=== PATIENT | female | born 1965 | race Two or more races ===

== ENCOUNTER 2024-05-04 05:50 | Emergency (ER) | payer MEDICAID ==
[~2024-05-04] VITALS: Ht 165.1 cm; Wt 103.4 kg
[2024-05-04 06:05] VITALS: BP 169/96; PULSE 73; RESP 18; TEMP 98.4; O2SAT 95
--- NOTE | 2024-05-04 06:54 | ED.PDOC ---
GI ASSESSMENT HPI Comments A 59 YEAR OLD FEMALE PRESENTS TO THE ED WITH COMPLAINT OF RIGHT UPPER QUADRANT ABDOMINAL PAIN THAT RADIATES TO MIDDLE BACK. PATIENT STATES SHE HAS BEEN EXPERIENCING RIGHT UPPER QUADRANT ABDOMINAL PAIN THAT RADIATES TO HER MIDDLE BACK OFF AND ON FOR THE PAST 1 WEEK. PATIENT NOTES EATING INCREASES HER PAIN. PATIENT DENIES DYSURIA, HEMATURIA, FLANK PAIN, FEVER, CHILLS, SHORTNESS OF BREATH, CHEST PAIN, NAUSEA, VOMITING, HEADACHE, OR OTHER COMPLAINTS. NO OTHER SYMPTOMS OR MODIFYING FACTORS AT THIS TIME. PATIENT IS ALERT, ORIENTED X 4, AND HAS STEADY GAIT. Chief Complaint: Abdominal Pain Time Seen by MD: 06:20 Reviewed Notes: Nurses Notes, Medications, Allergies Allergies: Coded Allergies: Penicillins (Verified Allergy, Unknown, 05/04/24) Home Meds Active Scripts Dicyclomine Hcl (BENTYL CAPSULE) 10 Mg Cp, 20 MG PO TID, #30 CAP Prov:KAREN AGUIRRE 05/04/24 Docusate Sodium (Colace) 100 Mg Cap, 1 CAP PO BID, #30 CAP Prov:KAREN AGUIRRE 05/04/24 Information Source: Patient Mode of Arrival: Ambulatory Timing: Days Duration: Since onset, Days Prehospital treatment: None Quality: Aching, Cramping Vomitus: None Stool: Normal Severity: Moderate Recent: None Recent Hx of: None Pain Location: Epigastric, RUQ Modifying Factors: Nothing Associated sign and symptoms: Abdominal Pain Past Medical History PAST MEDICAL HISTORY: DM, HTN Surgical History: Denies all surgeries SOLDERER ASSEMBLER 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 History Family History Family History: Reviewed,noncontributory to illness Social History Smoker: Non-Smoker Alcohol: Denies ETOH Use Drugs: Denies Drug Use Lives In: Home Constitutional: denies: chills, diaphoresis, fatigue, fever, malaise, sweats, weakness, others EENTM: denies: blurred vision, double vision, ear bleeding, ear discharge, ear drainage, ear pain, ear ringing, eye pain, eye redness, hearing loss, mouth pain, mouth swelling, nasal discharge, nose bleeding, nose congestion, nose pain, photophobia, tearing, throat pain, throat swelling, voice changes, others Respiratory: denies: cough, hemoptysis, orthopnea, SOB at rest, shortness of breath, SOB with excertion, stridor, wheezing, others Cardiovascular: denies: chest pain, dizzy spells, diaphoresis, Dyspnea on exertion, edema, irregular heart beat, left arm pain, lightheadedness, palpitations, PND, syncope, others Gastrointestinal: reports: abdominal pain (RUQ ABDOMINAL PAIN); denies: abdomen distended, blood streaked bowels, constipated, diarrhea, dysphagia, difficulty swallowing, hematemesis, melena, nausea, poor appetite, poor fluid intake, rectal bleeding, rectal pain, vomiting, others Genitourinary: denies: abnormal vagina bleeding, burning, dyspareunia, dysuria, flank pain, frequency, hematuria, incontinence, pain, , vagina disc harge, urgency, others Neurological: denies: dizziness, fainting, headache, left sided numbness, left sided weakness, numbness, paresthesia, pre-existing deficit, right sided numbness, right sided weakness, seizure, speech problems, tingling, tremors, weakness, others Musculoskeletal: reports: back pain (MIDDLE BACK PAIN); denies: gout, joint pain, joint swelling, muscle pain, muscle stiffness, neck pain, others Integumetry: denies: bruises, change in color, change in hair/nails, dryness, laceration, lesions, lumps, rash, wounds, others Allergic/Immunocompromised: denies: Difficulty Healing, Frequent Infections, Hives, Itching, others Hematologic/Lymphatic: denies: anemia, blood clots, easy bleeding, easy bruising, swollen glands, others Endocrine: denies: excessive hunger, excessive sweating, excessive thirst, excessive urination, flushing, intolerance to cold, intolerance to heat, unexplained weight gain, unexplained weight loss, others Psychiatric: denies: anxiety, bipolar disorder, depression, hopeless, panic disorder, schizophrenia, sleepless, suicidal, others All Other Systems: Reviewed and Negative Physical Exam General Appearance: No Apparent Distress, Obese HEENT: Normal ENT Inspection, PERRL/EOMI, Pharynx Normal, TMs Normal Neck: Full Range of Motion, Non-Tender, Normal, Normal Inspection Respiratory: Chest Non-Tender, Lungs Clear, No Accessory Muscle Use, No Respiratory Distress, Normal Breath Sounds Cardiovascular: No Edema, No JVD, No Murmur, No Gallop, Normal Peripheral Pulses, Regular Rate/Rhythm Breast Exam: Deferred Gastrointestinal: No Organomegaly, No Pulsatile Mass, Normal Bowel Sounds, RUQ, Soft, Tenderness (RIGHT UPPER ABD, NO GUARDING AND REBOUND TENDERNESS. ) Genitalia: Deferred Pelvic: Deferred Rectal: Deferred Extremities: No calf tenderness, Normal capillary refill, Normal inspection, Normal range of motion, Non-tender, No pedal edema Musculoskeletal : Apperance: Normal Neurologic: Alert, general machine operator II-XII nml as Tested, No Motor Deficits, Normal Affect, Normal Mood, No Sensory Deficits Cerebellar Function: Normal Reflexes: Normal Skin: Dry, Normal Color, Warm Peripheral Pulses: 2+ carotid (R), 2+ carotid (L) Lymphatic: No Adenopathy Was a procedure done? Was a procedure done?: No GI differential Dx Differential Diagnosis: Cholecystitis, Constipation, Gastritis/PUD, Gastroenteritis, Inflammatory BD, Pancreatitis, UTI, Kidney Stone X-Ray, Labs, Meds, VS Vital Signs Date Time Temp Pulse Resp B/P (MAP) Pulse Ox O2 Delivery O2 Flow Rate FiO2 05/04/24 07:04 Room Air 05/04/24 06:05 98.4 73 18 169/96 (120) 95 05/04/24 06:05 98.4 73 18 169/96 (120) 95 98.4 Lab Test 05/04/24 07:03 05/04/24 06:34 Range/Units Urine Color Colorless Yellow Urine Clarity Clear Clear Urine pH 6.0 5.0-9.0 Urine Specific [place] 1.013 1.001-1.035 Urine Protein 1+ H Negative Urine Ketones Negative Negative Urine Blood Negative Negative /uL Urine Nitrite Negative Negative Urine Bilirubin Negative Negative Urine Urobilinogen Normal Negative mg/dL Urine Leukocyte Esterase 1+ Negative /uL Urine RBC 1 0 - 4 /hpf Urine Microscopic WBC 5 0-5 /HPF Urine Squamous Epithelial Cells Few <5 /hpf Urine Bacteria None seen None Seen /hpf Urine Glucose Trace Normal mg/dL White Blood Count 8.9 4.4-10.8 10^3/uL Red Blood Count 4.57 4.0-5.20 10^6/uL Hemoglobin 13.9 12.2-16.2 g/dL Hematocrit 41.7 36.0-46.0 % Mean Corpuscular Volume 91.4 80.0-100.0 fL Mean Corpuscular Hemoglobin 30.4 28.0-32.0 pg Mean Corpuscular Hemoglobin Concent 33.3 32.0-36.0 g/dL Red Cell Distribution Width 13.5 11.8-14.3 % Platelet Count 417 140-450 10^3/uL Mean Platelet Volume 8.5 6.9-10.8 fL Neutrophils (%) (Auto) 61.6 37.0-80.0 % Lymphocytes (%) (Auto) 23.9 10.0-50.0 % Monocytes (%) (Auto) 11.0 0.0-12.0 % Eosinophils (%) (Auto) 2.8 0.0-7.0 % Basophils (%) (Auto) 0.7 0.0-2.0 % Neutrophils # (Auto) 5.5 1.6-8.6 10 ^3/uL Lymphocytes # (Auto) 2.1 0.4-5.4 10 ^3/uL Monocytes # (Auto) 1.0 0-1.3 10 ^3/uL Eosinophils # (Auto) 0.3 0-0.8 10 ^3/uL Basophils # (Auto) 0.1 0-0.2 10 ^3/uL Nucleated Red Blood Cells 0.0 % Sodium Level 142 136-145 mmol/L Potassium Level 4.5 3.5-5.1 mmol/L Chloride Level 107 98-107 mmol/L Carbon Dioxide Level 26 20-31 mmol/L Anion Gap 9 5-15 Blood Urea Nitrogen 26 H 9-23 mg/dL Creatinine 1.47 H 0.550-1.02 mg/dL Glomerular Filtration Rate Calc 41 >90 mL/min BUN/Creatinine Ratio 17.7 10.0-20.0 Serum Glucose 191 H 74-106 mg/dL Calcium Level 10.4 8.7-10.4 mg/dL Total Bilirubin 0.3 0.2-1.0 mg/dL Aspartate Amino Transferase (AST) 12 L 13-40 U/L Alanine Aminotransferase (ALT) 15 7-40 U/L Alkaline Phosphatase 106 46-116 U/L Total Protein 7.8 5.7-8.2 g/dL Albumin 4.7 3.2-4.8 g/dL Lipase 50 12-53 U/L Current Medications Medications (Trade) Dose Ordered Sig/Mark Route Start Time Stop Time Status Last Admin Acetaminophen/ Hydrocodone Bitart ([place] 10/325MG Tab) 1 tab ONCE ONCE PO 05/04/24 08:15 2/15/25 08:16 DC 05/04/24 08:11 CLINICAL INFORMATION: 59 years old, Female; right upper quadrant pain. TECHNIQUE: Grayscale sonographic imaging of the right upper quadrant of the abdomen was performed, assisted by color Doppler techniques. COMPARISON: None FINDINGS: Limited examination due to the patient's clinical condition. Patient is in pain and unable to hold still during the examination. The gallbladder wall measures 2.9 mm in thickness, within normal limits. No stones are seen. Negative reported sonographic singh's sign. The common bile duct is not visualized. Increased echogenicity of the liver suggesting fatty infiltration. Liver is within normal limits in size, measuring up to 15.3 cm in craniocaudal dimension. Pancreas is obscured by bowel gas. The right kidney measures 9.9 cm. There is no hydronephrosis. Right renal cortical echogenicity and cortical thickness are within normal limits. IMPRESSION: 1. Limited examination. No sonographic evidence of acute cholecystitis. Common bile duct is not visualized. 2. Hepatic steatosis. ATED BY: BASILIO MORALES DO DICTATED DATE/TIME: 05/04/24738 SIGNED BY: BASILIO MORALES DO SIGNED DATE/TIME: 05/04/24738 CC: CLINICAL INFORMATION: 59 years old, Female; right upper abdominal pain radiating to the back. TECHNIQUE: Axial CT images of the abdomen and pelvis were obtained without IV contrast. Coronal and sagittal reformatted images were obtained, reviewed, and stored. Evaluation of the parenchymal organs is limited without IV contrast. Evaluation of the bowel and mesentery is limited without oral contrast. All CT scans at this medical facility are performed using dose modulation techniques as appropriate to a performed exam including the following: Automated exposure control was utilized; adjustment of the MA and/or KV according to patient size; and use of iterative reconstruction technique. CTDIvol = 26.35 mGy DLP = 1290.55 mGy-cm COMPARISON: Correlation made to same day ultrasound. FINDINGS: Lung bases: Lung bases are clear. Liver: Grossly unremarkable in its noncontrast enhanced appearance. No abnormal density or focal lesion identified. Biliary: No calcified gallstones or biliary ductal dilatation. Spleen: Unremarkable. Pancreas: Grossly unremarkable in its noncontrast enhanced appearance. Adrenal glands: Unremarkable. No mass. Kidneys: No hydronephrosis. No renal or ureteral calculi. Aorta/Vascular: Scattered atherosclerotic calcification. No abdominal aortic aneurysm. Retroperitoneum: No mass or lymphadenopathy. Bowel/mesentery: No small bowel obstruction. No free air or free fluid. Appendix is visualized and appears unremarkable. Scattered colonic diverticula without adjacent inflammatory changes to suggest diverticulitis. Moderate stool in the colon. Pelvic organs: Uterus is anteverted. Cystic appearing structure in the right adnexa measuring up to 4 cm in greatest dimension, likely ovarian cyst. Bladder: Unremarkable. No mass. Abdominal wall: No mass or hernia. Bones: No acute fracture or suspicious intraosseous lesion. Severe disc space narrowing at L4-L5 with associated sclerosis near the vertebral endplates. IMPRESSION: 1. Scattered small colonic diverticula without adjacent inflammatory changes to suggest diverticulitis. 2. Moderate stool in the colon. 3. 4 cm cystic structure in the right adnexa, likely ovarian cyst. Correlate with clinical findings. If clinically indicated, pelvic ultrasound could be obtained. 4. Additional nonacute findings as detailed above. ATED BY: BASILIO MORALES DO DICTATED DATE/TIME: 05/04/24829 SIGNED BY: BASILIO MORALES DO SIGNED DATE/TIME: 05/04/24829 CC: X-Ray, Labs, Meds, VS Comment EXTERNAL MEDICAL RECORDS REVIEWED: [NONE] INDEPENDENT HISTORIANS: [NONE] SOCIAL DETERMINANTS OF HEALTH: [NONE] LABS ORDERED: CBC, CMP, UA, LIPASE REVIEWED AND INTERPRETED RESULTS: IMAGING ORDERED: U.S. ABDOMEN TREATMENTS ORDERED: [place] 10/325 PO PROCEDURES PERFORMED: NONE CRITICAL CARE TIME: NONE I HAVE DISCUSSED THE PATIENT WITH THE ATTENDING PHYSICIAN DR. ELIAS AND HE AGREES WITH THE PATIENT'S PLAN OF CARE AND DISPOSITION. BASED ON HISTORY OF PRESENT ILLNESS, AND PHYSICAL EXAM, PATIENT WILL BE DISCHARGED HOME. SHARED DECISION MAKING: PATIENT INSTRUCTED TO FOLLOW UP WITH PRIMARY CARE PROVIDER IN 1-2 DAYS FOR RE-EVALUATION OF SYMPTOMS. PATIENT VERBALIZES UNDERSTANDING TO RETURN TO ED FOR NEW OR WORSENING SYMPTOMS OR IF FOLLOW UP WITH PCP CANNOT BE OBTAINED. PATIENT FEELS COMFORTABLE GOING HOME AT THIS TIME. ALL QUESTIONS ADDRESSED AT TIME OF DISCHARGE. Images Reviewed?: Images reviewed and evaluated by me Time of 1ST Reevaluation: 08:50 Reevaluation 1ST: Improved Patient Education/Counseling: Diagnosis, Treatment, Need For Follow Up Family Education/Counseling: Diagnosis, Treatment, Need For Follow Up Medical Screening: No EMC Exist At This Time Departure 1 Departure Time of Disposition: 09:00 Impression: Primary Impression: Acute constipation Additional Impressions: Hepatic steatosis Right ovarian cyst Disposition: HOME / SELF CARE / HOMELESS Condition: Stable Additional Instructions: FOLLOW-UP WITH PCP IN 1 TO 2 DAYS. TAKE MEDICATIONS PRESCRIBED. RETURN TO ED FOR ANY NEW OR WORSENING SYMPTOMS. e-Prescriptions Dicyclomine Hcl (BENTYL CAPSULE) 10 Mg Cp 20 MG PO TID, #30 CAP Prov: KAREN AGUIRRE 05/04/24 Docusate Sodium (Colace) 100 Mg Cap 1 CAP PO BID, #30 CAP Prov: KAREN AGUIRRE 05/04/24 Discharged With: Self Critical Care Note Critical Care Time?: No Stability Stability form required: No I personally scribed for KAREN AGUIRRE ([email or web address]) on 05/04/24 at 06:53. Electronically submitted by Rhett Pulliam ([email or web address]). I personally scribed for KAREN AGUIRRE ([email or web address]) on 05/04/24 at 07:43. Electronically submitted by Rhett Pulliam ([employer]). I personally scribed for KAREN AGUIRRE ([email or web address]) on 05/04/24 at 08:46. Electronically submitted by Rhett Pulliam ([email or web address]). I personally scribed for KAREN AGUIRRE ([email or web address]) on 05/04/24 at 08:47. Electronically submitted by Rhett Pulliam ([employer]). KAREN AGUIRRE May 04, 2024 06:53
[2024-05-04 07:04] LABS: Urine Bacteria None Seen /hpf (None Seen)
[2024-05-04 07:24] LABS: Basophils # (auto) 0.1 10 ^3/uL (0-0.2); Basophils % (auto) 0.7 % (0.0-2.0); Eosinophils # (auto) 0.3 10 ^3/uL (0-0.8); Eosinophils % (auto) 2.8 % (0.0-7.0); Hematocrit 41.7 % (36.0-46.0); Hemoglobin 13.9 g/dL (12.2-16.2); Lymphocytes # (auto) 2.1 10 ^3/uL (0.4-5.4); Lymphocytes % (auto) 23.9 % (10.0-50.0); Mean Corpuscular Hemoglobin 30.4 pg (28.0-32.0); Mean Corpuscular Hgb Conc. 33.3 g/dL (32.0-36.0); Mean Corpuscular Volume 91.4 fL (80.0-100.0); Neutrophils # (auto) 5.5 10 ^3/uL (1.6-8.6); Neutrophils % (auto) 61.6 % (37.0-80.0); Platelet Count (auto) 417 10^3/uL (140-450); Red Blood Cells 4.57 10^6/uL (4.0-5.20); Red Cell Distribution Width 13.5 % (11.8-14.3); White Blood Cell 8.9 10^3/uL (4.4-10.8)
[2024-05-04 07:32] LABS: Alanine Aminotransferase 15 U/L (7-40); Albumin 4.7 g/dL (3.2-4.8); Alkaline Phosphatase 106 U/L (46-116); Anion Gap 9 (5-15); BUN/Creatinine Ratio 17.7 (10.0-20.0); Bilirubin, Total 0.3 mg/dL (0.2-1.0); Calcium 10.4 mg/dL (8.7-10.4); Carbon Dioxide 26 mmol/L (20-31); Chloride 107 mmol/L (98-107); Potassium 4.5 mmol/L (3.5-5.1); Sodium 142 mmol/L (136-145); Total Protein 7.8 g/dL (5.7-8.2)
[2024-05-04 07:33] LABS: Urine Blood Negative /uL (Negative); Urine Clarity Clear (Clear); Urine Color Colorless (Yellow); Urine Protein, UAD 1+ (Negative); Urine Specific Gravity 1.013 (1.001-1.035); Urine Squamous Epithelial Cell FEW /hpf (<5); Urine Urobilinogen Normal (Negative); Urine WBC 5 /HPF (0-5)
--- NOTE | 2024-05-04 07:41 | DVH ---
CLINICAL INFORMATION: 59 years old, Female; right upper quadrant pain. TECHNIQUE: Grayscale sonographic imaging of the right upper quadrant of the abdomen was performed, a ssisted by color Doppler techniques. COMPARISON: None FINDINGS: Limited examination due to the patient's clinical condition. Patient is in pain and unable to hold still during the examination. The gallbladder wall measures 2.9 mm in thickness, within nor mal limits. No stones are seen. Negative reported sonographic singh's sign. The common bile duct is not visualized. Increased echogenicity of the liver suggesting fatty infiltration. Liver is within normal limits in s ize, measuring up to 15.3 cm in craniocaudal dimension. Pancreas is obscured by bowel gas. The right kidney measures 9.9 cm. There is no hydronephrosis. Right renal cortical echogenicity an d cortical thickness are within normal limits. IMPRESSION: 1. Limited examination. No sonographic evidence of acute cholecystitis. Common bile duct is not visua lized. 2. Hepatic steatosis.
[2024-05-04 07:44] LABS: Aspartate Aminotransferase 12 U/L (13-40); Blood Urea Nitrogen 26 mg/dL (9-23); Glucose 191 mg/dL (74-106)
[2024-05-04] MEDS: HYDROcodone-ACET 10/325MG TAB PO ONE (08:11)
--- NOTE | 2024-05-04 08:33 | DVH ---
CLINICAL INFORMATION: 59 years old, Female; right upper abdominal pain radiating to the back. TECHNIQUE: Axial CT images of the abdomen and pelvis were obtained without IV contrast. Coronal and sagittal reformatted images were obtained, reviewed, and stored. Evaluation of the parenchymal organs is limited without IV contrast. Evaluation of the bowel and mesentery is limited without oral contra st. All CT scans at this medical facility are performed using dose modulation techniques as appropria te to a performed exam including the following: Automated exposure control was utilized; adjustment o f the MA and/or KV according to patient size; and use of iterative reconstruction technique. CTDIvol = 26.35 mGy DLP = 1290.55 mGy-cm COMPARISON: Correlation made to same day ultrasound. FINDINGS: Lung bases: Lung bases are clear. Liver: Grossly unremarkable in its noncontrast enhanced appearance. No abnormal density or focal les ion identified. Biliary: No calcified gallstones or biliary ductal dilatation. Spleen: Unremarkable. Pancreas: Grossly unremarkable in its noncontrast enhanced appearance. Adrenal glands: Unremarkable. No mass. Kidneys: No hydronephrosis. No renal or ureteral calculi. Aorta/Vascular: Scattered atherosclerotic calcification. No abdominal aortic aneurysm. Retroperitoneum: No mass or lymphadenopathy. Bowel/mesentery: No small bowel obstruction. No free air or free fluid. Appendix is visualized and ap pears unremarkable. Scattered colonic diverticula without adjacent inflammatory changes to suggest d iverticulitis. Moderate stool in the colon. Pelvic organs: Uterus is anteverted. Cystic appearing structure in the right adnexa measuring up to 4 cm in greatest dimension, likely ovarian cyst. Bladder: Unremarkable. No mass. Abdominal wall: No mass or hernia. Bones: No acute fracture or suspicious intraosseous lesion. Severe disc space narrowing at L4-L5 with associated sclerosis near the vertebral endplates. IMPRESSION: 1. Scattered small colonic diverticula without adjacent inflammatory changes to suggest diverticuliti s. 2. Moderate stool in the colon. 3. 4 cm cystic structure in the right adnexa, likely ovarian cyst. Correlate with clinical findings. If clinically indicated, pelvic ultrasound could be obtained. 4. Additional nonacute findings as detailed above.
[2024-05-04] MEDS ORDERED: DICY10CA PO (08:49)
[2024-05-04] MEDS ORDERED: DOCU-94 PO (08:49)
== END 2024-05-04 16:40 | disposition home or self-care (01) ==
LOC: ER 05:50
DX: K59.00 Constipation, unspecified (principal); K76.0 Fatty (change of) liver, not elsewhere classified; N83.201 Unspecified ovarian cyst, right side; E11.9 Type 2 diabetes mellitus without complications; I10 Essential (primary) hypertension; Z88.0 Allergy status to penicillin
CPT/HCPCS: 36415; 74176; 76705; 80053; 81001; 83690; 85025

== ENCOUNTER 2024-08-03 17:43 | Emergency (ER) | payer MEDICAID ==
[~2024-08-03] VITALS: Ht 165.1 cm; Wt 104.5 kg
[~2024-08-03 17:43] MED LIST: DICY10CA PO; DOCU-94 PO
--- NOTE | 2024-08-03 18:28 | ED.PDOC ---
Back pain HPI HPI Comments 59 year old female BENEDICTO presents to the ED with chief complaint of back pain. Patient reports that she has been experiencing mid lower back pain for the past 3 days with her pain radiating to the suprapubic region. Patient denies any N/V, flank pain, dysuria, hematuria, chest pain, fall, or injury. Chief Complaint: Back Pain Time Seen by MD: 18:25 Primary Care Provider: UNKNOWN Reviewed Notes: Nurses Notes, Waiter/Waitress Counter Notes, Medications, Allergies Allergies: Coded Allergies: Penicillins (Verified Allergy, Unknown, 05/04/24) Home Meds Active Scripts Dicyclomine Hcl (BENTYL CAPSULE) 10 Mg Cp, 20 MG PO TID, #30 CAP Prov:KAREN AGUIRRE 05/04/24 Docusate Sodium (Colace) 100 Mg Cap, 1 CAP PO BID, #30 CAP Prov:KAREN AGUIRRE 05/04/24 Information Source: Patient, Emergency Med Personnel Mode of Arrival: EMS Timing: Days Duration: Since onset Location of Back pain: (B) Lower back Radiates to: Anterior: Other (Suprapubic region) Severity: Moderate Prehospital treatment: None Quality: Aching History of: None Past Medical History PAST MEDICAL HISTORY: DM, GERD, High Lipids, HTN Surgical History: Denies all surgeries [employer] History: Ovarian Cysts Family History Family History: Reviewed,noncontributory to illness Social History Smoker: Other (Vapes) Alcohol: Denies ETOH Use Drugs: Denies Drug Use Lives In: Home Constitutional: denies: chills, diaphoresis, fatigue, fever, malaise, sweats, weakness, others EENTM: denies: blurred vision, double vision, ear bleeding, ear discharge, ear drainage, ear pain, ear ringing, eye pain, eye redness, hearing loss, mouth pain, mouth swelling, nasal discharge, nose bleeding, nose congestion, nose pain, photophobia, tearing, throat pain, throat swelling, voice changes, others Respiratory: denies: cough, hemoptysis, orthopnea, SOB at rest, shortness of breath, SOB with excertion, stridor, wheezing, others Cardiovascular: denies: chest pain, dizzy spells, diaphoresis, Dyspnea on exertion, edema, irregular heart beat, left arm pain, lightheadedness, palpitations, PND, syncope, others Gastrointestinal: denies: abdomen distended, abdominal pain, blood streaked bowels, constipated, diarrhea, dysphagia, difficulty swallowing, hematemesis, melena, nausea, poor appetite, poor fluid intake, rectal bleeding, rectal pain, vomiting, others Genitourinary: denies: abnormal vagina bleeding, burning, dyspareunia, dysuria, flank pain, frequency, hematuria, incontinence, pain, , vagina discharge, urgency, others Neurological: denies: dizziness, fainting, headache, left sided numbness, left sided weakness, numbness, paresthesia, pre-existing deficit, right sided numbness, right sided weakness, seizure, speech problems, tingling, tremors, weakness, others Musculoskeletal: reports: back pain; denies: gout, joint pain, joint swelling, muscle pain, muscle stiffness, neck pain, others Integumetry: denies: bruises, change in color, change in hair/nails, dryness, laceration, lesions, lumps, rash, wounds, others Allergic/Immunocompromised: denies: Difficulty Healing, Frequent Infections, Hives, Itching, others Hematologic/Lymphatic: denies: anemia, blood clots, easy bleeding, easy bruising, swollen glands, others Endocrine: denies: excessive hunger, excessive sweating, excessive thirst, excessive urination, flushing, intolerance to cold, intolerance to heat, unexplained weight gain, unexplained weight loss, others Psychiatric: denies: anxiety, bipolar disorder, depression, hopeless, panic disorder, schizophrenia, sleepless, suicidal, others All Other Systems: Reviewed and Negative Physical Exam General Appearance: Mild Distress, Moderate Distress, Obese HEENT: Normal ENT Inspection, PERRL/EOMI, Pharynx Normal, TMs Normal Neck: Full Range of Motion, Non-Tender, Normal, Normal Inspection Respiratory: Chest Non-Tender, Lungs Clear, No Accessory Muscle Use, No Respiratory Distress, Normal Breath Sounds Cardiovascular: No Edema, No JVD, No Murmur, No Gallop, Normal Peripheral Pulses, Regular Rate/Rhythm Breast Exam: Deferred Gastrointestinal: No Organomegaly, Non Tender, No Pulsatile Mass, Normal Bowel Sounds, Soft, Other (MORBID OBESITY) Genitalia: Deferred Pelvic: Deferred Rectal: Deferred Extremities: No calf tenderness, Normal capillary refill, Normal inspection, Normal range of motion, Non-tender, No pedal edema Musculoskeletal : Location: Bilateral Extremity Location: Back Apperance: Limited ROM, Tenderness: Moderate Neurologic: Alert, telephone advice nurse II-XII nml as Tested, No Motor Deficits, Normal Affect, Normal Mood, No Sensory Deficits Cerebellar Function: Normal Reflexes: NOT DONE Skin: Dry, Normal Color, Warm Peripheral Pulses: 1+ carotid (R), 1+ carotid (L) Lymphatic: No Adenopathy Was a procedure done? Was a procedure done?: No Back Pain Differential Dx Differential Diagnosis: DJD, Musculoskeletal Pain, Pyelonephritis, Strain, Urolithiasis X-Ray, Labs, Meds, VS Vital Signs Date Time Temp Pulse Resp B/P (MAP) Pulse Ox O2 Delivery O2 Flow Rate FiO2 08/03/24 20:26 98.7 52 20 100/70 (80) 96 98.7 08/03/24 20:26 59 89 96 Room Air 08/03/24 17:47 98.2 62 16 163/77 (105) 96 98.2 Lab Test 08/03/24 20:10 08/03/24 18:31 Range/Units Urine Color Light-yellow Yellow Urine Clarity Clear Clear Urine pH 5.5 5.0-9.0 Urine Specific [place] 1.026 1.001-1.035 Urine Protein 1+ H Negative Urine Ketones Negative Negative Urine Blood Negative Negative /uL Urine Nitrite Negative Negative Urine Bilirubin Negative Negative Urine Urobilinogen Normal Negative mg/dL Urine Leukocyte Esterase Negative Negative /uL Urine RBC 1 0 - 4 /hpf Urine Microscopic WBC 2 0-5 /HPF Urine Squamous Epithelial Cells Few <5 /hpf Urine Bacteria Few H None Seen /hpf Urine Mucus Few None Seen Urine Glucose 4+ H Normal mg/dL White Blood Count 13.6 H 4.4-10.8 10^3/uL Red Blood Count 4.82 4.0-5.20 10^6/uL Hemoglobin 13.8 12.2-16.2 g/dL Hematocrit 42.6 36.0-46.0 % Mean Corpuscular Volume 88.4 80.0-100.0 fL Mean Corpuscular Hemoglobin 28.6 28.0-32.0 pg Mean Corpuscular Hemoglobin Concent 32.4 32.0-36.0 g/dL Red Cell Distribution Width 14.3 11.8-14.3 % Platelet Count 447 140-450 10^3/uL Mean Platelet Volume 7.7 6.9-10.8 fL Neutrophils (%) (Auto) 82.8 H 37.0-80.0 % Lymphocytes (%) (Auto) 10.9 10.0-50.0 % Monocytes (%) (Auto) 5.8 0.0-12.0 % Eosinophils (%) (Auto) 0.0 0.0-7.0 % Basophils (%) (Auto) 0.5 0.0-2.0 % Neutrophils # (Auto) 11.3 H 1.6-8.6 10 ^3/uL Lymphocytes # (Auto) 1.5 0.4-5.4 10 ^3/uL Monocytes # (Auto) 0.8 0-1.3 10 ^3/uL Eosinophils # (Auto) 0 0-0.8 10 ^3/uL Basophils # (Auto) 0.1 0-0.2 10 ^3/uL Nucleated Red Blood Cells 0.0 % Sodium Level 140 136-145 mmol/L Potassium Level 4.8 3.5-5.1 mmol/L Chloride Level 108 H 98-107 mmol/L Carbon Dioxide Level 19 L 20-31 mmol/L Anion Gap 13 5-15 Blood Urea Nitrogen 35 H 9-23 mg/dL Creatinine 1.43 H 0.550-1.02 mg/dL Glomerular Filtration Rate Calc 43 >90 mL/min BUN/Creatinine Ratio 24.5 H 10.0-20.0 Serum Glucose 277 H 74-106 mg/dL Calcium Level 9.0 8.7-10.4 mg/dL Lumbar XR: FINDINGS/IMPRESSION: There is no evidence of acute fracture or dislocation. Mild bony spondylosis and degenerative disc changes worse at L4-5. The alignment is anatomical. There is no radiopaque foreign body. 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 Patient will receive Toradol 60 mg IM and and will be discharged home Images Reviewed?: Images reviewed and evaluated by me Time of 1ST Reevaluation: 19:25 Reevaluation 1ST: Unchanged Time of 2ND Reevaluation: 20:43 Reevaluation 2ND: Unchanged Consultation: PCP Patient Education/Counseling: Diagnosis, Treatment, Prognosis, Need For Follow Up Family Education/Counseling: Diagnosis, Treatment, Prognosis, Need For Follow Up, No Family Present Departure 1 Departure Time of Disposition: 20:45 Impression: Primary Impression: Lumbar radiculopathy Additional Impressions: Uncontrolled diabetes mellitus Qualified Codes: E11.65 - Type 2 diabetes mellitus with hyperglycemia Diabetes mellitus with diabetic nephropathy Qualified Codes: E11.21 - Type 2 diabetes mellitus with diabetic nephropathy Disposition: 01 HOME / SELF CARE / HOMELESS Condition: Fair Additional Instructions: Push fluids and address your diabetes with your PCP e-Prescriptions Nitrofurantoin Monohydrate Mac (Macrobid) 100 Mg Cap 100 MG PO BID for 7 Days, #14 CAP Prov: MAHAMED ELIAS MD 08/03/24 Acetaminophen (Acetaminophen Extra Stren) 500 Mg Tab 500 MG PO TID for 10 Days, #30 TAB Prov: MAHAMED ELIAS MD 08/03/24 Cyclobenzaprine Hcl (Cyclobenzaprine Hcl) 10 Mg Tab 10 MG PO TID for 10 Days, #30 TAB Prov: MAHAMED ELIAS MD 08/03/24 Discharged With: Self Critical Care Note Critical Care Time?: No Stability Stability form required: No Heart Score Heart Score: Heart Score Response (Comments) Value History N/A 0 EKG N/A 0 Age 45-64 1 Risk Factors >3 or Hx ASHD 2 Troponin N/A 0 Total 3 I personally scribed for MAHAMED ELIAS MD ([email or web address]) on 08/03/24 at 18:28. Electronically submitted by Constantine Powers ([email or web address]). I personally scribed for MAHAMED ELIAS MD ([email or web address]) on 08/03/24 at 19:34. Electronically submitted by Constantine Powers ([email or web address]). MAHAMED ELIAS MD August 03, 2024 18:28
[2024-08-03 18:42] LABS: Basophils # (auto) 0.1 10 ^3/uL (0-0.2); Basophils % (auto) 0.5 % (0.0-2.0); Eosinophils # (auto) 0 10 ^3/uL (0-0.8); Hematocrit 42.6 % (36.0-46.0); Hemoglobin 13.8 g/dL (12.2-16.2); Lymphocytes # (auto) 1.5 10 ^3/uL (0.4-5.4); Lymphocytes % (auto) 10.9 % (10.0-50.0); Mean Corpuscular Hemoglobin 28.6 pg (28.0-32.0); Mean Corpuscular Hgb Conc. 32.4 g/dL (32.0-36.0); Mean Corpuscular Volume 88.4 fL (80.0-100.0); Monocytes # (auto) 0.8 10 ^3/uL (0-1.3); Monocytes % (auto) 5.8 % (0.0-12.0); Neutrophils # (auto) 11.3 10 ^3/uL (1.6-8.6); Neutrophils % (auto) 82.8 % (37.0-80.0); Platelet Count (auto) 447 10^3/uL (140-450); Red Blood Cells 4.82 10^6/uL (4.0-5.20); Red Cell Distribution Width 14.3 % (11.8-14.3); White Blood Cell 13.6 10^3/uL (4.4-10.8)
[2024-08-03 18:49] LABS: Potassium 4.8 mmol/L (3.5-5.1); Sodium 140 mmol/L (136-145)
[2024-08-03 18:50] LABS: Anion Gap 13 (5-15)
[2024-08-03 18:51] LABS: Carbon Dioxide 19 mmol/L (20-31); Chloride 108 mmol/L (98-107)
[2024-08-03 18:56] LABS: BUN/Creatinine Ratio 24.5 (10.0-20.0); Blood Urea Nitrogen 35 mg/dL (9-23); Glucose 277 mg/dL (74-106)
--- NOTE | 2024-08-03 19:02 | DVH ---
CLINICAL INDICATION: ACUTE PAIN LUMBAR SPINE TECHNIQUE: 3 radiographic views of the lumbar spine were obtained. Comparison: None FINDINGS/IMPRESSION: There is no evidence of acute fracture or dislocation. Mild bony spondylosis and degenerative disc changes worse at L4-5. The alignment is anatomical. There is no radiopaque foreign body.
[2024-08-03 20:26] VITALS: BP 100/70; PULSE 59; RESP 89; TEMP 98.7; O2SAT 96
[2024-08-03 20:33] LABS: Urine Bacteria FEW /hpf (None Seen); Urine Blood Negative /uL (Negative); Urine Clarity Clear (Clear); Urine Color Light-Yellow (Yellow); Urine Mucus FEW (None Seen); Urine Protein, UAD 1+ (Negative); Urine Specific Gravity 1.026 (1.001-1.035); Urine Squamous Epithelial Cell FEW /hpf (<5); Urine Urobilinogen Normal (Negative); Urine WBC 2 /HPF (0-5); Urine pH 5.5 (5.0-9.0)
[2024-08-03] MEDS ORDERED: CYCL-839 PO (20:49)
[2024-08-03] MEDS ORDERED: ACET-6 PO (20:49)
[2024-08-03] MEDS ORDERED: NITR-87 PO (20:50)
[2024-08-03] MEDS ORDERED: HYDR-4902 PO (20:59)
== END 2024-08-03 21:19 | disposition home or self-care (01) ==
LOC: EDUNIT# 17:43 → EDBD 17:43 → ER 17:43
DX: M54.16 Radiculopathy, lumbar region (principal); E11.65 Type 2 diabetes mellitus with hyperglycemia; E11.21 Type 2 diabetes mellitus with diabetic nephropathy; K21.9 Gastro-esophageal reflux disease without esophagitis; E78.5 Hyperlipidemia, unspecified; I10 Essential (primary) hypertension; F17.290 Nicotine dependence, other tobacco product, uncomplicated; Z88.0 Allergy status to penicillin; Z79.899 Other long term (current) drug therapy; Z98.890 Other specified postprocedural states
CPT/HCPCS: 36415; 72100; 80048; 81001; 85025